=== PATIENT | female | born 1960 | race Two or more races ===

== ENCOUNTER 2016-07-17 15:46 | Emergency (ER) | payer MEDICAID, MEDICARE ==
[~2016-07-17] VITALS: Ht 162.6 cm; Wt 156.9 kg
[~2016-07-17 15:46] MED LIST: METH-562 PO
[2016-07-17] MEDS ORDERED: cloNIDine HCL 0.1 MG TAB ONE (15:51)
[2016-07-17] MEDS ORDERED: cloNIDine HCL 0.1 MG TAB PO ONE (16:00)
[2016-07-17 18:19] VITALS: BP 155/91
== END 2016-07-17 19:34 | disposition home or self-care (01) ==
LOC: ER 15:51
DX: I10 Essential (primary) hypertension (principal); F17.210 Nicotine dependence, cigarettes, uncomplicated